=== PATIENT | female | born 1995 | race Caucasian/White ===

== ENCOUNTER → 2022-09-11 | Outpatient (CLI) | payer BC ==
[2022-09-11 14:43] LABS: HCT 33.8 % (37.2-46.3); MCHC 32.5 g/dL (32.0-37.0); MCV 95.2 fL (80.0-97.0); Mean Platelet Volume 10.4 fL (9.5-12.2); NRBC Per 100 WBC 0 /100 WBCS (0.0-0.0); Platelet Count 251 X 10*3/uL (140-440); RBC 3.55 X 10*6/uL (4.10-5.20); WBC 10.48 X 10*3/uL (4.50-10.00)
[2022-09-12 15:41] LABS: T4, Free (Free Thyroxine) 0.95 ng/dL (0.800-1.800)
== END | disposition home or self-care (01) ==
LOC: LABWHC1 09:48
PROVIDERS: ATTEND Obstetrics & Gynecology
DX: Z34.02 Encounter for supervision of normal first pregnancy, second trimester (principal); R53.83 Other fatigue; Z3A.00 Weeks of gestation of pregnancy not specified
CPT/HCPCS: 36415; 82950; 84439; 84443; 85027

== ENCOUNTER 2022-12-10 14:27 | Outpatient (CLI) | payer BC ==
[2022-12-10 15:20] VITALS: BP 128/87; PULSE 82; RESP 17; TEMP 98.1
--- NOTE | 2022-12-11 03:33 | P.MSEPDOC ---
Presenting Problems - Arrival Data Date of Arrival on Unit: 12/10/22 Time of Arrival on Unit: 14:27 Mode of Transport: Ambulatory - Complaint OB-Reason for Admission/Chief Complaint: Decreased Movement Comment: Pt presents to triage with c/o decreased movement Medical History - Information : 1 Para: 0 Term: 0 : 0 Abortions: Spontaneous or Elective: 0 Number of Living Children: 0 - Gestational Age Gestational Age by MARIO (wks/days): 39 Weeks and 3 Days Review of Systems - Review of Systems Constitutional: No problems Breast: No problems ENT: No problems Cardiovascular: No problems Respiratory: No problems Gastrointestinal: No problems Genitourinary: No problems Musculoskeletal: No problems Neurological: No problems Skin: No problems Vital Signs - Temperature Temperature: 98.1 F Temperature Source: Temporal Artery Scan - Pulse Pulse Oximetery Pulse Rate: 82 Pulse Assessment Method: Pulse Oximetry - Respirations Respiratory Rate: 17 Oxygen Delivery Method: Room Air O2 Sat by Pulse Oximetry: 98 - Blood Pressure Right Arm Blood Pressure: 128/87 Blood Pressure Mean: 100 Blood Pressure Source: Automatic Cuff Medical Screen Scoring - Cervical Exam Membranes: Intact - Uterine Contractions Intensity: Mild Resting: Soft to palpation - Assessment - Baby A Baseline FHR: 135 Heart Rate - NICHD Category: Category I (Normal) NST: Reactive Physician Notification - Physician Notified Physician Notified Date: 12/10/22 Physician Notified Time: 14:58 Physician: Jordan Chowdary New Order Received: Yes - Notification Comment Comment: RN spoke with Dr. Chowdayr regarding triage pt c/o decreased movement. Reported maternal vital signs WNL, category 1 reactive NST and pt has pushed the handheld button 12 times to indicate movement. Order received to discharge pt home and educate and reassure pt heart tones are reactive. Maternal Triage Index - Maternal Triage Index Presenting for scheduled procedure w/no complaint: No - Stat/Priority 1 Stat Priority 1: No - Urgent/Priority 2 Urgent Priority 2: Yes Provider Notified: Jordan Chowdary Provider Notified Time: 14:58 Criteria Met for Priority 2: c/o decreased movement Disposition - Disposition OB Disposition: Discharge to home, Written follow up instructions reviewed Discharge Date: 12/10/22 Discharge Time: 15:03 I agree with the RN Medical Screening Exam: Yes Case reviewed; plan agreed upon as documented in EMR&OBIX.: Yes Diagnosis: DECREASED MOVEMENTS, THIRD TRIMESTER, FETUS 1 (A heart tones are category 1. Patient is feeling movement here in labor and delivery. There is no evidence of compromise.)
== END 2022-12-10 15:03 | disposition home or self-care (01) ==
LOC: FBPOP 14:27
PROVIDERS: ATTEND Obstetrics & Gynecology
DX: O36.8131 Decreased fetal movements, third trimester, fetus 1 (principal); Z3A.39 39 weeks gestation of pregnancy
CPT/HCPCS: 59025; 99213

== ENCOUNTER 2022-12-13 05:15 | Inpatient (IN) | payer BC ==
--- NOTE | 2022-12-12 20:19 | P.HPOB ---
History of Present Illness H&P Date: 12/12/22 Chief Complaint: Induction of labor This is a 27 y.o. female, 1, para 0, with an estimated date of confinement of 12/14/2022, estimated gestational age of 39-6/7 weeks, who presents for induction of labor. She has recently been experiencing decreased movement, but NSTs have been reactive. She is feeling irregular contractions and noticing some leg swelling. labs: GC/Chlamydia/Trich-neg Hepatitis B surface antigen-neg RPR-NR Rubella-immune Blood type-A+ Antibody-neg Hemoglobin-13 Toxoplasma-neg Random glucose-80 1 hr. GTT-183 3 hr. 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 Works in [employer]. Review of Systems Constitutional: Denies chills, Denies fever Eyes: denies blurred vision, denies pain Ears, nose, mouth and throat: Denies headache, Denies sore throat Cardiovascular: Denies chest pain, Denies shortness of breath Respiratory: Denies cough Gastrointestinal: Reports abdominal pain (irregular contractions) Genitourinary: Reports pelvic pain, Reports Musculoskeletal: Reports low back pain Musculoskeletal: bilateral: foot swelling Integumentary: Denies pruritus, Denies rash Neurological: Denies numbness, Denies weakness Psychiatric: Denies anxiety, Denies depression Past Medical History Past Medical History: No Reported History History of Any Multi-Drug Resistant Organisms: None Reported Past Surgical History: No Surgical Hx Reported Past Anesthesia/Blood Transfusion Reactions: No Reported Reaction Past Psychological History: No Psychological Hx Reported Smoking Status: Never smoker Past Alcohol Use History: None Reported Past Drug Use History: None Reported - Past Family History Mother Family Medical History: Hypertension Medications and Allergies Home Medications Medication Instructions Recorded Confirmed Type Pnv No.154/Iron Fum/Folic Acid 1 capsule PO DAILY 12/10/22 12/10/22 History [ Plus Vitamin Tablet] Allergies Allergy/AdvReac Type Severity Reaction Status Date / Time No Known Allergies Allergy Verified 12/10/22 14:37 Exam Osteopathic Statement: *. No significant issues noted on an osteopathic structural exam other than those noted in the History and Physical/Consult. HEENT: within normal limits Heart: regular rate and rhythm Lungs: clear to auscultation bilaterally Abdomen: soft, gravid Cervix: 1.5 cm/60%/-2 heart tones: 140's by doppler Extremities: neg. Yannick's Assessment and Plan (1) 39 weeks gestation of Status: Acute Code(s): Z3A.39 - 39 WEEKS GESTATION OF SNOMED Code(s): 45922368 Plan: Proceed with oxytocin induction of labor. Expectant management. Epidural anestheia if desired.
[2022-12-13] MEDS ORDERED: LIDOCAINE 1% (10MG/ML) FOR IV START INTRADERMA PRN (05:32)
[2022-12-13] MEDS ORDERED: LIDOCAINE 0.5% (PF) 5 MG/ML (50 ML SDV) SQ PRN (05:32)
[2022-12-13] MEDS ORDERED: TERBUTALINE 1 MG/ML VIAL SQ PRN (05:32)
[2022-12-13] MEDS ORDERED: TRANEXAMIC ACID IN NACL,ISO-OS 1,000 MG in EMPTY BAG 1 BAG IV PRN (05:32)
[2022-12-13] MEDS ORDERED: OXYTOCIN 10 UNIT/ML 1 ML VIAL IM PRN (05:32)
[2022-12-13] MEDS ORDERED: CARBOPROST TROMETHAMINE 250 MCG/ML 1 ML AMP IM PRN (05:32)
[2022-12-13] MEDS ORDERED: METHYLERGONOVINE 0.2 MG/ML 1 ML AMP IM PRN (05:32)
[2022-12-13] MEDS ORDERED: OXYTOCIN 30 UNITS/500 ML NS 30 UNIT in SALINE 1 500ML.BAG IV SCH (05:32)
[2022-12-13] MEDS ORDERED: miSOPROStoL 200 MCG TAB PO PRN (05:32)
[2022-12-13 05:40] VITALS: RESP 16
[2022-12-13 05:51] LABS: Basophils % (A) 0 %; Eosinophils # (A) 0.2 k/uL (0-0.7); Eosinophils % (A) 2 %; HCT 37.4 % (34.0-46.0); HGB 12.4 gm/dL (11.4-16.0); Lymphocytes % (A) 22 %; MCH 31.3 pg (25.0-35.0); MCHC 33.3 g/dL (31.0-37.0); MCV 93.9 fL (80.0-100.0); Mean Platelet Volume 9.4; Monocytes # (A) 0.4 k/uL (0-1.0); Monocytes % (A) 5 %; Neutrophils # (A) 6.1 k/uL (1.3-7.7); Neutrophils % (A) 69 %; Platelet Count 207 k/uL (150-450); RBC 3.98 m/uL (3.80-5.40); RDW 13.1 % (11.5-15.5); WBC 8.8 k/uL (3.8-10.6)
[2022-12-13] MEDS: LACTATED RINGERS 1,000 ML IV SCH ×3 (06:13→13:00)
[2022-12-13] MEDS ORDERED: SODIUM CHLORIDE 0.9% 100 ML BAG ONE (11:56)
[2022-12-13] MEDS ORDERED: fentaNYL (PF) 50 MCG/ML 5 ML AMP ONE (11:56)
[2022-12-13] MEDS ORDERED: ROPIVACAINE 5 MG/ML 20 ML AMPULE ONE (11:56)
[2022-12-13] MEDS ORDERED: SIMETHICONE 80 MG CHEWABLE PO PRN (16:09)
[2022-12-13] MEDS ORDERED: diphenhydrAMINE 50 MG/ML 1 ML VIAL IVP PRN ×2 (16:09)
[2022-12-13] MEDS ORDERED: HYDROCORTISONE 2.5% RECTAL CREAM 30 GM TUBE RECTAL PRN (16:09)
[2022-12-13] MEDS ORDERED: diphenhydrAMINE 25 MG CAP PO PRN (16:09)
[2022-12-13] MEDS ORDERED: ZOLPIDEM 5 MG TAB PO PRN (16:09)
[2022-12-13] MEDS ORDERED: diphenhydrAMINE 50 MG CAP PO PRN (16:09)
[2022-12-13] MEDS ORDERED: BENZOCAINE/MENTHOL SPRAY 1 GM/SPRAY AEROSOL TOPICAL PRN (16:09)
--- NOTE | 2022-12-13 17:47 | P.PROBDLV ---
Vaginal Delivery Note - . Vaginal Delivery Note: The patient progressed to complete dilation after oxytocin augmentation of labor. Patient did arrive with spontaneous rupture of membranes this morning at 4:30. She did receive epidural anesthesia. Once reaching complete, she began pushing. Infant's head came to a crown. With one further push, the infant's head delivered across the perineum followed by the anterior shoulder. Nose and mouth were bulb suctioned. Cord was clamped and cut and infant was taken to warmer for evaluation. A viable female infant is noted with scores of 8 at 1 minute and 9 at 5 minutes and weight of 7 pounds 0.2 ounces. Placenta delivered shortly thereafter, intact, with a three-vessel cord. Uterus contracted fairly well after oxytocin was given and uterine massage was carried out. Inspection of the perineum revealed a second-degree perineal laceration. This area was anesthetized with 1% lidocaine and then sutured with 3-0 and 2-0 Vicryl suture in the usual multilayer fashion. Estimated blood loss is approximately 200 mL's. Both mother and are in stable condition.
[2022-12-13] MEDS: IBUPROFEN 600 MG TAB PO PRN (19:15)
[2022-12-13] MEDS: ACETAMINOPHEN TAB 325 MG TAB PO PRN (22:28)
[2022-12-13] MEDS: SENNOSIDES-DOCUSATE SODIUM 1 EACH TAB PO SCH (22:28)
[2022-12-14] MEDS: IBUPROFEN 600 MG TAB PO PRN ×2 (00:18→08:53)
[2022-12-14] MEDS: ACETAMINOPHEN TAB 325 MG TAB PO PRN ×2 (03:49→14:45)
[2022-12-14 07:38] LABS: Basophils % (A) 0 %; Eosinophils # (A) 0.1 k/uL (0-0.7); Eosinophils % (A) 1 %; HCT 30.7 % (34.0-46.0); HGB 10.2 gm/dL (11.4-16.0); Lymphocytes # (A) 1.5 k/uL (1.0-4.8); Lymphocytes % (A) 13 %; MCHC 33.3 g/dL (31.0-37.0); MCV 95.9 fL (80.0-100.0); Mean Platelet Volume 9.5; Monocytes # (A) 0.4 k/uL (0-1.0); Monocytes % (A) 3 %; Neutrophils # (A) 9.5 k/uL (1.3-7.7); Neutrophils % (A) 81 %; Platelet Count 164 k/uL (150-450); WBC 11.7 k/uL (3.8-10.6)
[2022-12-14] MEDS: SENNOSIDES-DOCUSATE SODIUM 1 EACH TAB PO SCH (08:53)
--- NOTE | 2022-12-14 10:06 | P.DS ---
Providers Date of admission: 12/13/22 05:15 Expected date of discharge: 12/14/22 Attending physician: Ivonne Vanessa Primary care physician: Stated None - Discharge Diagnosis(es) (1) 39 weeks gestation of Current Visit: No Status: Acute Hospital Course: This is a 27-year-old female 1 para 0 at 39-6/7 weeks who presented for induction of labor however she did arrive early due to spontaneous rupture of membranes. She underwent oxytocin augmentation of labor and delivered vaginally a viable female on 12/13/2022 with scores of 8 at 1 minute and 9 at 5 minutes and infant weight is 7 pounds 0.2 ounces. Her course has been uncomplicated. Lochia is decreasing. Her pain is fairly well controlled with ibuprofen and Tylenol. She is still sore on her bottom. She is bottle feeding. Vital signs are stable. Abdomen is soft with fundus firm and nontender. Extremities show negative Homans. Impression is status post vaginal delivery day #1. Plan is to discharge home today. Routine instructions are given. She will be given a prescription for ibuprofen. She is advised to follow up in the office in 6 weeks for check. She is advised to call the office if she has any further questions or concerns prior to her point in time. Procedures: Oxytocin augmentation of labor Spontaneous vaginal delivery of a viable female infant on 12/13/2022 Patient Condition at Discharge: Stable Plan - Discharge Summary Discharge Rx Participant: Yes New Discharge Prescriptions: New Ibuprofen [Motrin] 600 mg PO Q6HR PRN #60 tab PRN Reason: Mild Pain (Scale 1 To 3) Continue Pnv No.154/Iron Fum/Folic Acid [ Plus Vitamin Tablet] 1 capsule PO DAILY Discharge Medication List Pnv No.154/Iron Fum/Folic Acid [ Plus Vitamin Tablet] 1 capsule PO DAILY 12/10/22 [History] Ibuprofen [Motrin] 600 mg PO Q6HR PRN #60 tab 12/14/22 [Rx] Follow up Appointment(s)/Referral(s): Ivonne Vanessa DO [Doctor of Osteopathic Medicine] - 01/22/23 11:30 am Activity/Diet/Wound Care/Special Instructions: Instructions 1. Do not begin any exercise program for 3 weeks. 2. Do not resume sexual relations for 3 weeks or longer if uncomfortable. 3. You may take tub baths or showers at any time. 4. You may use tampons if desired after 3 weeks. 5. Keep the area of episiotomy (stitches) clean and dry. 6. If you are not nursing, wear a good fitting, supportive bra during the day and limit fluid intake for at least 1 week to prevent breast engorgement. 7. Call the office, [phone], within the next week to make appointment for your 6 week checkup if it has not already been made. 8. Report any of the following occurrences to the doctor promptly: a. Heavy, excessive bleeding b. Chills, fever c. Burning or frequency of urination d. Pain or redness and breasts if nursing e. Increasing pain or swelling in episiotomy (stitches). In addition to the above instructions, the following additional should be followed: 1. No heavy lifting or straining (exercising) until after 6 week checkup. 2. Keep abdominal incision clean and dry: You may wear a dressing if more comfortable. 3. Make office appointment for 10 days after going home or as instructed by her doctor. Discharge Disposition: HOME SELF-CARE
[2022-12-14 16:41] VITALS: BP 120/82; PULSE 80; TEMP 98.1
== END 2022-12-14 18:50 | disposition home or self-care (01) | DRG 807 ==
LOC: 4FBP 05:15
PROVIDERS: ADMIT Obstetrics & Gynecology; ATTEND Obstetrics & Gynecology
PROC: 0KQM0ZZ Repair Perineum Muscle, Open Approach (ICD-10-PCS; principal; 2022-12-13)
PROC: 10E0XZZ Delivery of Products of Conception, External Approach (ICD-10-PCS; principal; 2022-12-13)
DX: O36.8130 Decreased fetal movements, third trimester, not applicable or unspecified (principal); O70.1 Second degree perineal laceration during delivery; Z3A.39 39 weeks gestation of pregnancy; Z37.0 Single live birth
CPT/HCPCS: 85025; 86850; 86900; 86901

== ENCOUNTER → 2024-06-02 | Outpatient (CLI) | payer BC ==
--- NOTE | 2024-06-02 08:36 | US ---
EXAMINATION TYPE: US pelvic complete DATE OF EXAM: 06/02/2024 COMPARISON: NONE CLINICAL INDICATION: Female, 29 years old with history of R10.30 Lower abdominal pain; TECHNIQUE: . Transabdominal sonographic images of the pelvis were acquired. Transvaginal sonographi c images were not medically necessary Date of LMP: 05/26/2024 EXAM MEASUREMENTS: Uterus: 10.5 x 2.7 x 5.8 cm Endometrial Stripe: 0.4 cm Right Ovary: 4.7 x 3.6 x 1.7 cm Left Ovary: 2.8 x 2.7 x 1.4 cm 1. Uterus: Anteverted wnl 2. Endometrium: wnl 3. Right Ovary: wnl 4. Left Ovary: wnl 5. Bilateral Adnexa: wnl 6. Posterior cul-de-sac: wnl Patient concerned about bladder - additional images taken due to patient concern; Bladder appears WNL ; Bilateral jets are seen; Post void residual seen IMPRESSION: 1. No evidence for acute process. 2. Urinary bladder with mild post void residual. [facility], , 06/02/2024 8:34 AM
== END | disposition home or self-care (01) ==
LOC: RADUSWWP 07:59
PROVIDERS: ATTEND Pediatrics
DX: R10.30 Lower abdominal pain, unspecified (principal)
CPT/HCPCS: 76856

== ENCOUNTER → 2025-04-06 | Outpatient (CLI) | payer BC ==
--- NOTE | 2025-04-06 08:25 | XR ---
EXAMINATION TYPE: XR chest 2V DATE OF EXAM: 04/06/2025 8:08 AM COMPARISON: None. CLINICAL INDICATION: Female, 29 years old with history of R07.9 CHEST PAIN, TECHNIQUE: XR chest 2V view(s) obtained. FINDINGS: The heart size is normal. The pulmonary vasculature is normal. The lungs are clear. IMPRESSION: 1. No acute pulmonary process. [facility], Workstation: [facility], 04/06/2025 8:23 AM
--- NOTE | 2025-04-06 09:50 | US ---
EXAMINATION TYPE: US abdomen complete DATE OF EXAM: 04/06/2025 COMPARISON: NONE CLINICAL INDICATION: Female, 29 years old with history of R10.11 RUQ PAIN,R10.12 LUQ PAIN x 1 mo with some nausea and bloating. Drinks socially - denies any other signs, symptoms, or relevant history TECHNIQUE: Grayscale and color Doppler imaging of the abdomen was performed. FINDINGS: EXAM MEASUREMENTS: Liver Length: 18.0 cm Gallbladder Wall: 0.2 cm CBD: 0.3 cm, color Doppler imaging was utilized to isolate the common bile duct for measurement. Spleen: 11.0 cm Right Kidney: 13.8 x 4.6 x 5.6 cm Left Kidney: 12.1 x 6.5 x 4.7 cm WOMEN'S STUDIES LECTURER NOTES: Pancreas: wnl Liver: wnl, no dilated ducts, masses or cysts. ? Hardened ligament - shadowing seen from ligament b etween right and left liver lobes. Gallbladder: wnl Evidence for sonographic Arora's sign: No CBD: wnl Spleen: wnl Right Kidney: wnl, No hydronephrosis, calculi or masses seen; ? Prominent renal pelvis vs other etio logy Left Kidney: wnl, No hydronephrosis, calculi or masses seen Upper IVC: wnl Abd Aorta: wnl Findings: IMPRESSION: 1. Hepatomegaly. 2. No discrete suspicious ultrasound abnormality [facility], Workstation: [facility], 04/06/2025 9:47 AM
[2025-04-06 16:02] LABS: ALT 39 U/L (8-44); AST 27 U/L (13-35); Albumin 4.6 g/dL (3.8-4.9); Albumin/Globulin Ratio 2.09 Ratio (1.60-3.17); Alkaline Phosphatase 96 U/L (41-126); Amylase 42 U/L (23-121); Anion Gap 11.50 mmol/L (4.00-12.00); BUN/Creat Ratio 21.17 Ratio (12.00-20.00); Blood Urea Nitrogen 12.7 mg/dL (9.0-27.0); Calcium 9.4 mg/dL (8.7-10.3); Carbon Dioxide 23.5 mmol/L (21.6-31.8); Chloride 105 mmol/L (96-109); Globulin 2.2 g/dL (1.6-3.3); Glucose 94 mg/dL (70-110); Potassium 4.0 mmol/L (3.5-5.5); Sodium 140 mmol/L (135-145); Total Protein 6.8 g/dL (6.2-8.2)
[2025-04-06 16:03] LABS: Lipase 27 U/L (14-63)
[2025-04-06 16:04] LABS: Basophils # (A) 0.02 X 10*3/uL (0.00-0.10); Basophils % (A) 0.4 %; Eosinophils # (A) 0.30 X 10*3/uL (0.04-0.35); Eosinophils % (A) 5.5 %; HCT 38.7 % (37.2-46.3); HGB 12.5 g/dL (12.0-15.0); Immature Grans, Automated 0.20 %; Lymphocytes # (A) 1.75 X 10*3/uL (0.90-5.00); Lymphocytes % (A) 32.0 %; MCH 29.5 pg (27.0-32.0); MCHC 32.3 g/dL (32.0-37.0); MCV 91.3 FL (80.0-97.0); Monocytes # (A) 0.38 X 10*3/uL (0.20-1.00); Monocytes % (A) 6.9 %; NRBC Per 100 WBC 0 X 10*3/uL (0.00-0.01); Neutrophils # (A) 3.01 X 10*3/uL (1.80-7.70); Neutrophils % (A) 55.0 %; Platelet Count 265 X 10*3/uL (140-440); RBC 4.24 X 10*6/uL (4.10-5.20); RDW 12.4 % (11.5-14.5); WBC 5.47 X 10*3/uL (4.50-10.00)
[2025-04-06 21:11] LABS: Gliadin AB IgA, Deaminated Negative (Negative); Gliadin AB IgA, Unit 0.5 U/mL; Gliadin AB IgG, Deaminated Negative (Negative); Gliadin AB IgG, Unit <0.4 U/mL
== END | disposition home or self-care (01) ==
LOC: RADUSWWP 07:43
PROVIDERS: ATTEND Pediatrics
DX: R16.0 Hepatomegaly, not elsewhere classified (principal); R10.11 Right upper quadrant pain; R10.12 Left upper quadrant pain; R07.9 Chest pain, unspecified
CPT/HCPCS: 71046; 76700; 80053; 82150; 83516; 83690; 85025; 85652